=== PATIENT | female | born 1950 | race Hispanic/Latino ===

== ENCOUNTER → 2018-03-28 | Outpatient (CLI) | payer MEDICARE ==
[~2018-03-28] MED LIST: ALEN70TA2 PO; ASPI-555 PO; CALC667C10 PO; CETI10TA57 PO; CLOP75TA32 PO; DOCU100C33 PO; FERR325T22 PO; FLUT16H NASAL; HYDR-4068 PO; INSU100I3 SQ; INSU100V12 SQ; KRIL1CAP22 PO; LORA1TAB3 PO; MEDR10TA PO; METO-408 PO; METO25TA6 PO; METO5TAB2 PO; MUPI1OIN5 TP; ONDA4TAB7 PO; POLY30DR OU; PRAV10TA39 PO; PREM625 PO; ROPI1TAB11 PO; SUCR1TAB2 PO; TEMA15CA PO
== END | disposition home or self-care (01) ==
LOC: RAH 07:34
PROVIDERS: ATTEND Family Medicine
DX: D69.6 Thrombocytopenia, unspecified (principal); Z90.49 Acquired absence of other specified parts of digestive tract
CPT/HCPCS: 76700

== ENCOUNTER → 2018-06-27 | Outpatient (CLI) | payer MEDICARE | END | disposition home or self-care (01) | LOC: RAH 12:26 | PROVIDERS: ATTEND Family Medicine | DX: M47.816 Spondylosis without myelopathy or radiculopathy, lumbar region (principal) | CPT/HCPCS: 72100 ==

== ENCOUNTER 2018-12-07 17:51 | Emergency (ER) | payer MEDICARE ==
[2018-12-07] MEDS ORDERED: ACETAMINOPHEN 325 MG TAB ONE (18:20)
[2018-12-07] MEDS ORDERED: HYDROCODONE/ACETAMINOPHEN 10/325 MG TAB ONE (18:21)
[2018-12-07 18:29] LABS: EOSINOPHILS % (AUTO) 0.5 % (0.0-8.0); HEMATOCRIT 35.3 % (36-48); LYMPHOCYTES % (AUTO) 8.6 % (21.0-51.0); MEAN CORPUSCULAR HEMOGLOBIN 28.7 pg (27.0-33.0); MEAN CORPUSCULAR HGB CONC 33.2 g/dL (32.0-36.0); MEAN CORPUSCULAR VOLUME 86.5 fL (79-99); MONOCYTES % (AUTO) 10.8 % (3.0-13.0); NEUTROPHILS % (AUTO) 79.1 % (40.0-77.0); PLATELET COUNT (AUTO) 64 K/uL (130-400); RED BLOOD CELL COUNT(AUTO) 4.08 MIL/uL (4.00-5.50)
[2018-12-07 18:51] LABS: CREATININE 7.6 mg/dL (0.5-1.5); POTASSIUM 4.5 mmol/L (3.5-5.1)
[2018-12-07 18:56] LABS: ALBUMIN 3.6 g/dL (3.5-5.0); BILIRUBIN,TOTAL 0.6 mg/dL (0.2-1.0); TOTAL PROTEIN, SERUM 7.2 g/dL (6.0-8.3)
[2018-12-07] MEDS ORDERED: SODIUM CHLORIDE 0.9% 500ML 500 ML IV ONE (19:28)
[2018-12-07] MEDS ORDERED: OSELTAMIVIR PHOSPHATE 75 MG CAP ONE (20:12)
== END 2018-12-07 20:47 | disposition home or self-care (01) ==
LOC: EDH 17:51
DX: J10.1 Influenza due to other identified influenza virus with other respiratory manifestations (principal); I12.0 Hypertensive chronic kidney disease with stage 5 chronic kidney disease or end stage renal disease; E11.22 Type 2 diabetes mellitus with diabetic chronic kidney disease; N18.6 End stage renal disease; Z99.2 Dependence on renal dialysis; I25.9 Chronic ischemic heart disease, unspecified
CPT/HCPCS: 36415; 71045; 80053; 82948; 83605; 84484; 85025; 87040 ×2; 87804 ×2; 93005; 99285; J7040

== ENCOUNTER 2019-01-23 21:09 | Inpatient (IN) | payer MEDICARE ==
[~2019-01-23] VITALS: Ht 160 cm; Wt 93.9 kg
[2019-01-23 21:45] LABS: EOSINOPHILS % (AUTO) 1.2 % (0.0-8.0); HEMATOCRIT 38.5 % (36-48); LYMPHOCYTES % (AUTO) 20.4 % (21.0-51.0); MEAN CORPUSCULAR HEMOGLOBIN 28.5 pg (27.0-33.0); MEAN CORPUSCULAR HGB CONC 33.2 g/dL (32.0-36.0); MEAN CORPUSCULAR VOLUME 85.9 fL (79-99); MONOCYTES % (AUTO) 12.6 % (3.0-13.0); NEUTROPHILS % (AUTO) 64.8 % (40.0-77.0); NUCLEATED RED BLOOD CELLS 0.2 % (0.0-0.19); PLATELET COUNT (AUTO) 108 K/uL (130-400); RED BLOOD CELL COUNT(AUTO) 4.48 MIL/uL (4.00-5.50); RED CELL DISTRIBUTION WIDTH 18.4 % (11.0-15.5); WHITE BLOOD COUNT (AUTO) 4.7 K/uL (4.8-10.8)
[2019-01-23 22:07] LABS: POTASSIUM 3.9 mmol/L (3.5-5.1)
[2019-01-23] MEDS ORDERED: ONDANSETRON HCL 4 MG/2 ML VIAL ONE (22:08)
[2019-01-23] MEDS ORDERED: MORPHINE SULFATE 4 MG/1ML SYG ONE (22:08)
[2019-01-23 22:09] LABS: INR 1.08 (0.85-1.15); PARTIAL THROMBOPLASTIN TIME 25.1 SEC (26.3-35.5); PROTHROMBIN TIME 11.3 SEC (9.6-11.6)
[2019-01-23 22:10] LABS: PLATELET MORPHOLOGY COMMENT SLIGHTLY DECREASED
[2019-01-23 22:11] LABS: ALBUMIN 3.6 g/dL (3.5-5.0); BILIRUBIN,TOTAL 0.7 mg/dL (0.2-1.0); TOTAL PROTEIN, SERUM 7.1 g/dL (6.0-8.3)
[2019-01-23 22:12] LABS: B-TYPE NATRIURETIC PEPTIDE 694 pg/mL (0-100)
[2019-01-24] MEDS ORDERED: NITROGLYCERIN 1GM/1 INCH PACKET TD ONE (02:39)
[2019-01-24] MEDS ORDERED: MORPHINE SULFATE 4 MG/1ML SYG ONE (02:46)
[2019-01-24] MEDS: NITROGLYCERIN 1GM/1 INCH PACKET TD SCH ×4 (03:00→21:00)
[2019-01-24] MEDS ORDERED: DEXTROSE 50%-WATER 50 ML DISP.SYRIN IV PRN (03:30)
[2019-01-24] MEDS ORDERED: GLUCAGON 1MG KIT 1 MG ML IM PRN (03:30)
--- NOTE | 2019-01-24 03:30 | NUR ---
ADMISSION NOTE: Admitted to floor via stretcher from ER. AOX3. Fully awake and responsive. Attached to O2 at 1 lpm via NC with O2Sat at 98%. Denied chest discomfort at this time. Placed in bed according to pt comfort. VS checked and recorded. Assessment done. ( see CPOE flow chart for full assessment). Oriented to room and use of call light. Policies and procedures explained. Verbalized understanding. Hooked to TELE with SR result. Has IV site to LFA #22g , SL - patent and intact. Plan of care initiated. Home meds resumed as ordered. Watched out for any unusual changes in condition. Cared for and needs provided. No apparent distress noted.
[2019-01-24 03:35] VITALS: BP 149/81
[2019-01-24] MEDS ORDERED: CETIRIZINE HCL 5 MG TABLET PO PRN (04:30)
[2019-01-24] MEDS ORDERED: BENZONATATE 100 MG CAPSULE PO PRN (04:30)
[2019-01-24] MEDS ORDERED: ISOS30TA6 PO (04:48)
[2019-01-24] MEDS ORDERED: PIOG15TA66 PO (04:48)
[2019-01-24] MEDS ORDERED: LINA145C PO (04:48)
[2019-01-24] MEDS ORDERED: BENZ200C53 PO (04:48)
[2019-01-24] MEDS ORDERED: OMEP40CA13 PO (04:48)
[2019-01-24] MEDS ORDERED: CILO100T PO (04:48)
[2019-01-24] MEDS ORDERED: MELO-108 PO (04:48)
[2019-01-24] MEDS ORDERED: NITR0.4T50 SL (04:48)
[2019-01-24] MEDS ORDERED: FOLI1TAB85 PO (04:48)
[2019-01-24] MEDS ORDERED: ROSU10TA28 PO (04:48)
[2019-01-24] MEDS: INSULIN R PO SS1 SQ SCH ×4 (05:36→20:40)
[2019-01-24 08:00] VITALS: BP 143/65
[2019-01-24] MEDS: CILOSTAZOL 100 MG TAB PO SCH ×2 (08:11→21:17)
[2019-01-24] MEDS: CALCIUM ACETATE 667 MG CAPSULE PO SCH ×3 (08:11→18:41)
[2019-01-24] MEDS: ASPIRIN 325 MG TABLET PO SCH (08:11)
[2019-01-24] MEDS: FERROUS SULFATE 325 MG TABLET.DR PO SCH (08:11)
[2019-01-24] MEDS: MELOXICAM 7.5 MG TABLET PO SCH (08:12)
[2019-01-24] MEDS: CLOPIDOGREL BISULFATE 75 MG TAB PO SCH (08:12)
[2019-01-24] MEDS: DOCUSATE SODIUM 100 MG CAP PO SCH (08:12)
[2019-01-24] MEDS: FOLIC ACID/VITAMIN B COMP W-C 1 MG CAP/TAB PO SCH (08:12)
[2019-01-24] MEDS: LORAZEPAM 1 MG TABLET PO SCH ×2 (08:22→21:17)
[2019-01-24] MEDS ORDERED: FLUTICASONE PROPIONATE 50MCG/SPRAY 16 GM BOTTLE NS SCH (09:00)
[2019-01-24] MEDS ORDERED: ROSUVASTATIN CALCIUM 10 MG PO SCH (09:00)
[2019-01-24] MEDS ORDERED: ***HM***Metoprolol Succinate 25 MG PO SCH (09:00)
[2019-01-24] MEDS: PIOGLITAZONE HCL 15 MG TAB PO SCH (10:54)
[2019-01-24] MEDS: ***HM***Linaclotide (Linzess) 145 MCG PO SCH (11:30)
[2019-01-24] MEDS: METOPROLOL TARTRATE 25 MG TAB PO SCH ×2 (11:35→21:17)
[2019-01-24 11:43] VITALS: BP 110/59
[2019-01-24] MEDS: HYDROCODONE/ACETAMINOPHEN 10/325 MG TAB PO PRN ×2 (14:45→21:22)
--- NOTE | 2019-01-24 15:22 | NUR ---
DCP CM met with pt discussed dc plans. Pt is semi-independent prior to admission, lives with spouse. Pt has provider 35hrs/wk, shower chair, walker, wheelchair, cane, O2, goes to [facility], [facility]. Denies any other equipments/services. Feels safe to go back home, spouse able to assist with transportation and needs as necessary. DC plan to home once stable. CM to cont to follow up. Addendum: 01/24/19 at 1524 by SAMIR GODFREY LVN CM Amended: Links added.
[2019-01-24 15:55] VITALS: BP 115/60
--- NOTE | 2019-01-24 16:39 | NUR ---
Heart healthy diet education: Printed materials provided on Low cholesterol, low fat diet therapy. Pt encouraged to increase fiber intake through fruits and vegetables appropriate with renal diet. Pt encouraged to monitor fruit intake d/t DM dx. Addendum: 01/24/19 at [address] Amended: Links added.
--- NOTE | 2019-01-24 17:29 | NUR ---
Nutrition intervention Nutrition consult for diet education. pt admitted for chest pain r/o PA. Heart healthy Diet education provided. Pt requesting no red meats to her diet states she wants to reduce saturated fat intake and improve her diet therapy. Pt also reports decreased appetite due to constipation. Recommendation: Continue current diet therapy. No red meats as per pt's request. More vegetables. Stool softener to alleviate low GI distress. Addendum: 01/24/19 at [address] Amended: Links added.
[2019-01-24 20:00] VITALS: BP 122/58
[2019-01-24] MEDS: ATORVASTATIN CALCIUM 20 MG TABLET PO SCH (21:17)
--- NOTE | 2019-01-24 21:40 | NUR ---
MARSHAL SALAZAR ROUNDED: Seen and examined pt with an order to have another round of Dialysis carrie for 2 hrs , since she was not able to complete her Dialysis earlier due to cramping and pain as verbalized by pt.
[2019-01-25] VITALS: BP 124/70
[2019-01-25] MEDS: NITROGLYCERIN 1GM/1 INCH PACKET TD SCH ×4 (03:00→21:00)
[2019-01-25 04:00] VITALS: BP 133/65
[2019-01-25] MEDS: INSULIN R PO SS1 SQ SCH ×4 (06:42→21:00)
[2019-01-25] MEDS: CALCIUM ACETATE 667 MG CAPSULE PO SCH ×3 (08:00→17:00)
[2019-01-25 08:41] VITALS: BP 135/64
[2019-01-25] MEDS: LORAZEPAM 1 MG TABLET PO SCH ×2 (09:00→15:44)
[2019-01-25] MEDS: CILOSTAZOL 100 MG TAB PO SCH ×2 (09:00→21:26)
[2019-01-25] MEDS: MELOXICAM 7.5 MG TABLET PO SCH (09:00)
[2019-01-25] MEDS: FOLIC ACID/VITAMIN B COMP W-C 1 MG CAP/TAB PO SCH (09:00)
[2019-01-25] MEDS: ***HM***Linaclotide (Linzess) 145 MCG PO SCH (09:00)
[2019-01-25] MEDS: METOPROLOL TARTRATE 25 MG TAB PO SCH ×2 (09:00→21:26)
[2019-01-25] MEDS: DOCUSATE SODIUM 100 MG CAP PO SCH (09:00)
[2019-01-25] MEDS: FERROUS SULFATE 325 MG TABLET.DR PO SCH (09:00)
[2019-01-25] MEDS: PIOGLITAZONE HCL 15 MG TAB PO SCH (09:00)
[2019-01-25] MEDS: CLOPIDOGREL BISULFATE 75 MG TAB PO SCH ×2 (09:00→15:45)
[2019-01-25] MEDS ORDERED: LORAZEPAM 2 MG/ML 1 ML VIAL IVP SCH (09:15)
[2019-01-25] MEDS ORDERED: REGADENOSON 0.4 MG/5 ML PF SYG IVP SCH (09:45)
[2019-01-25] MEDS: FLUTICASONE PROPIONATE 50MCG/SPRAY 16 GM BOTTLE NS SCH (10:46)
[2019-01-25] MEDS: HYDROCODONE/ACETAMINOPHEN 10/325 MG TAB PO PRN ×2 (11:55→21:41)
[2019-01-25] MEDS: ASPIRIN 325 MG TABLET PO SCH ×2 (12:03→15:48)
[2019-01-25 12:05] VITALS: BP 161/79
[2019-01-25] MEDS ORDERED: ONDANSETRON HCL 4 MG/2 ML VIAL IVP SCH (12:15)
[2019-01-25 16:00] VITALS: BP 129/56
[2019-01-25 19:10] VITALS: BP 110/67
--- NOTE | 2019-01-25 19:50 | NUR ---
Activity: Patient sitting at bedside chair, denies pain with saline lock gauge on her left forearm patent. Plan of care discussed with patient and family, verbalizes understanding.
--- NOTE | 2019-01-25 20:29 | NUR ---
Pt pending the results of Lexiscan and 2D echo for d/c determination. MD pending to read result.
[2019-01-25] MEDS: ATORVASTATIN CALCIUM 20 MG TABLET PO SCH (21:26)
--- NOTE | 2019-01-25 21:35 | NUR ---
Patient: Patient refused to have Nitroglycerin Parch she claimed, " I felt dizzy, had a headache and my feet swell after I had the medication. I don't need it."
[2019-01-26] VITALS (7 sets, daily range): BP systolic 91–138; BP diastolic 45–66
[2019-01-26] MEDS: NITROGLYCERIN 1GM/1 INCH PACKET TD SCH ×4 (03:00→21:00)
[2019-01-26] MEDS: INSULIN R PO SS1 SQ SCH ×4 (07:30→21:00)
[2019-01-26] MEDS: CALCIUM ACETATE 667 MG CAPSULE PO SCH ×3 (08:00→17:00)
[2019-01-26 08:11] LABS: HEPATITIS A ANTIBODY IGM Negative (Negative); HEPATITIS B CORE IGM Negative (Negative); HEPATITIS Bs ANTIGEN SCREEN P Negative (Negative)
[2019-01-26] MEDS: LORAZEPAM 1 MG TABLET PO SCH ×2 (08:30→21:25)
[2019-01-26] MEDS: HYDROCODONE/ACETAMINOPHEN 10/325 MG TAB PO PRN ×3 (08:31→21:25)
[2019-01-26] MEDS: FERROUS SULFATE 325 MG TABLET.DR PO SCH (09:00)
[2019-01-26] MEDS: MELOXICAM 7.5 MG TABLET PO SCH (09:00)
[2019-01-26] MEDS: ***HM***Linaclotide (Linzess) 145 MCG PO SCH (09:00)
[2019-01-26] MEDS: ASPIRIN 325 MG TABLET PO SCH ×2 (09:00→21:24)
[2019-01-26] MEDS: METOPROLOL TARTRATE 25 MG TAB PO SCH ×2 (09:00→21:25)
[2019-01-26] MEDS: CILOSTAZOL 100 MG TAB PO SCH ×2 (09:00→21:25)
[2019-01-26] MEDS: FLUTICASONE PROPIONATE 50MCG/SPRAY 16 GM BOTTLE NS SCH (09:00)
[2019-01-26] MEDS: PIOGLITAZONE HCL 15 MG TAB PO SCH (09:00)
[2019-01-26] MEDS: DOCUSATE SODIUM 100 MG CAP PO SCH (09:00)
[2019-01-26] MEDS: FOLIC ACID/VITAMIN B COMP W-C 1 MG CAP/TAB PO SCH (09:00)
--- NOTE | 2019-01-26 11:07 | NUR ---
HEMODIALYSIS Patient will have hemodialysis today. CARLOS Obregon was noitified.
--- NOTE | 2019-01-26 17:30 | NUR ---
MORNING MEDICATIONS Patient to have her medications after hemodialysis. The phoslo was refused. Stated her appetite is not very good and not eating much. At this time reports nausea. Will medicate as ordered.
--- NOTE | 2019-01-26 17:35 | NUR ---
HEMODIALYSIS Starting at this time. Echo has been read. Pending lexiscan to be read; Tae aware.
--- NOTE | 2019-01-26 20:10 | NUR ---
NAUSEA MEDICATION No call back from MD. Patient did not have any emesis. Nausea subsided on its own.
[2019-01-26] MEDS: CLOPIDOGREL BISULFATE 75 MG TAB PO SCH (21:25)
[2019-01-26] MEDS: ATORVASTATIN CALCIUM 20 MG TABLET PO SCH (21:25)
[2019-01-27] MEDS: NITROGLYCERIN 1GM/1 INCH PACKET TD SCH ×4 (03:00→20:49)
[2019-01-27 03:46] VITALS: BP 119/50
[2019-01-27 06:22] LABS: MEAN CORPUSCULAR HEMOGLOBIN 28.1 pg (27.0-33.0); MEAN CORPUSCULAR HGB CONC 32.4 g/dL (32.0-36.0); MEAN CORPUSCULAR VOLUME 86.9 fL (79-99); PLATELET COUNT (AUTO) 99 K/uL (130-400); RED BLOOD CELL COUNT(AUTO) 4.37 MIL/uL (4.00-5.50); RED CELL DISTRIBUTION WIDTH 18.5 % (11.0-15.5); WHITE BLOOD COUNT (AUTO) 4.2 K/uL (4.8-10.8)
[2019-01-27] MEDS: HYDROCODONE/ACETAMINOPHEN 10/325 MG TAB PO PRN ×4 (06:24→20:16)
[2019-01-27 06:30] LABS: CREATININE 5.4 mg/dL (0.5-1.5); POTASSIUM 3.6 mmol/L (3.5-5.1)
[2019-01-27] MEDS: INSULIN R PO SS1 SQ SCH ×4 (07:09→20:49)
[2019-01-27 08:00] VITALS: BP 120/60
[2019-01-27] MEDS: CALCIUM ACETATE 667 MG CAPSULE PO SCH ×3 (08:00→17:00)
[2019-01-27] MEDS: PIOGLITAZONE HCL 15 MG TAB PO SCH (08:43)
[2019-01-27] MEDS: CILOSTAZOL 100 MG TAB PO SCH ×2 (08:44→20:15)
[2019-01-27] MEDS: FOLIC ACID/VITAMIN B COMP W-C 1 MG CAP/TAB PO SCH (08:44)
[2019-01-27] MEDS: LORAZEPAM 1 MG TABLET PO SCH ×2 (08:44→21:43)
[2019-01-27] MEDS: MELOXICAM 7.5 MG TABLET PO SCH (08:45)
[2019-01-27] MEDS: DOCUSATE SODIUM 100 MG CAP PO SCH (08:45)
[2019-01-27] MEDS: FERROUS SULFATE 325 MG TABLET.DR PO SCH (08:45)
[2019-01-27] MEDS: METOPROLOL TARTRATE 25 MG TAB PO SCH ×2 (08:45→20:15)
[2019-01-27] MEDS: FLUTICASONE PROPIONATE 50MCG/SPRAY 16 GM BOTTLE NS SCH (08:46)
[2019-01-27] MEDS: ***HM***Linaclotide (Linzess) 145 MCG PO SCH (08:47)
[2019-01-27 12:00] VITALS: BP 125/62
--- NOTE | 2019-01-27 15:15 | NUR ---
DR. JAKE JOSEPH MAKING ROUNDS FOR BENCHMARK. ADVISED HIM OF PRELIMINARY LEXISCAN RESULTS OF POSITIVE WITH AN EF OF 27%. DR. JOSEPH ADVISED TO NOTIFY CARDIOLOGY OF LEXISCAN RESULTS.
--- NOTE | 2019-01-27 15:22 | NUR ---
PAGED DR. KAY JOSEPH REQUEST CHILD WATCH ATTENDANT BE GIVEN PRELIMINARY RESULTS OF LEXISCAN. PAGED AT [phone] HOURS WITH CALL BACK TO [phone]. Addendum: 01/27/19 at 1927 by CONNOR WAGONER RN RN MADE SECOND PAGE AT 1654 HOURS. NO RESPONSE AT THIS TIME. WILL PASS INFORMATION TO FIRE HOSE CURER NURSE IN REPORT.
[2019-01-27 16:00] VITALS: BP 121/57
[2019-01-27 19:56] VITALS: BP 135/66
--- NOTE | 2019-01-27 20:00 | NUR ---
PAGED DR CHRISTIANSON Paged Dr Christianson thru answering service.
--- NOTE | 2019-01-27 20:13 | NUR ---
ANSWERING SERVICE Answering service called back,will paged Dr Christianson again.
[2019-01-27] MEDS: ATORVASTATIN CALCIUM 20 MG TABLET PO SCH (20:15)
[2019-01-27] MEDS: CLOPIDOGREL BISULFATE 75 MG TAB PO SCH (20:21)
[2019-01-27] MEDS: ASPIRIN 325 MG TABLET PO SCH ×2 (20:22→20:44)
--- NOTE | 2019-01-27 20:59 | NUR ---
PAGED PAGEGarfield VILLANUEVA AGAIN THRU ANSWERING SERVICE.NURSE SITTER SANGEETA HART AWARE.
--- NOTE | 2019-01-27 21:02 | NUR ---
DR KAY Christianson called back,no new order.States to call Dr Donnelly re Gabriela report in am.
[2019-01-27 23:36] VITALS: BP 118/62
[2019-01-28] VITALS (11 sets, daily range): BP systolic 115–146; BP diastolic 57–79
[2019-01-28] MEDS: NITROGLYCERIN 1GM/1 INCH PACKET TD SCH ×5 (03:00→21:02)
[2019-01-28] MEDS: HYDROCODONE/ACETAMINOPHEN 10/325 MG TAB PO PRN ×4 (05:10→23:39)
[2019-01-28 05:18] LABS: HEMATOCRIT 38.8 % (36-48); MEAN CORPUSCULAR HGB CONC 32.7 g/dL (32.0-36.0); MEAN CORPUSCULAR VOLUME 88.6 fL (79-99); NUCLEATED RED BLOOD CELLS 0.1 % (0.0-0.19); PLATELET COUNT (AUTO) 85 K/uL (130-400); RED BLOOD CELL COUNT(AUTO) 4.38 MIL/uL (4.00-5.50); RED CELL DISTRIBUTION WIDTH 18.5 % (11.0-15.5); WHITE BLOOD COUNT (AUTO) 4.1 K/uL (4.8-10.8)
[2019-01-28 05:41] LABS: CREATININE 7.2 mg/dL (0.5-1.5); POTASSIUM 3.6 mmol/L (3.5-5.1)
[2019-01-28] MEDS: INSULIN R PO SS1 SQ SCH ×4 (06:27→21:00)
[2019-01-28] MEDS: LORAZEPAM 1 MG TABLET PO SCH ×2 (07:46→21:00)
[2019-01-28] MEDS: CALCIUM ACETATE 667 MG CAPSULE PO SCH ×3 (07:47→17:00)
--- NOTE | 2019-01-28 07:47 | NUR ---
CALCIUM ACETATE Refused. Stated she only takes it when she eats a large meal.
[2019-01-28] MEDS: FLUTICASONE PROPIONATE 50MCG/SPRAY 16 GM BOTTLE NS SCH (09:00)
[2019-01-28] MEDS: ***HM***Linaclotide (Linzess) 145 MCG PO SCH (09:00)
[2019-01-28] MEDS: DOCUSATE SODIUM 100 MG CAP PO SCH (09:00)
--- NOTE | 2019-01-28 09:45 | NUR ---
DR. DONNELLY Spoke to Mallory at Dr. Donnelly's office. Stated she will notify Dr. Donnelly of the positive stress test. Pending for Dr. Donnelly to call back.
--- NOTE | 2019-01-28 10:53 | NUR ---
ELLIE Refused. Stated she already had it for this morning.
[2019-01-28] MEDS ORDERED: ONDANSETRON HCL 4 MG/2 ML VIAL ONE (11:22)
[2019-01-28] MEDS: MELOXICAM 7.5 MG TABLET PO SCH (11:31)
[2019-01-28] MEDS: METOPROLOL TARTRATE 25 MG TAB PO SCH (11:31)
[2019-01-28] MEDS: FERROUS SULFATE 325 MG TABLET.DR PO SCH (11:32)
[2019-01-28] MEDS: FOLIC ACID/VITAMIN B COMP W-C 1 MG CAP/TAB PO SCH (11:32)
[2019-01-28] MEDS: PIOGLITAZONE HCL 15 MG TAB PO SCH (11:32)
[2019-01-28] MEDS: CILOSTAZOL 100 MG TAB PO SCH ×2 (11:32→21:00)
[2019-01-28] MEDS ORDERED: DiphenhydrAMINE HCL 50 MG/ML VIAL IVP PRN (14:30)
[2019-01-28] MEDS ORDERED: HEPARIN SODIUM 1000UNIT/ML 10ML VIAL ONE (14:33)
[2019-01-28] MEDS ORDERED: FENTANYL CITRATE PF 50 MCG/1 ML 2ML VIAL ONE (14:33)
[2019-01-28] MEDS ORDERED: MIDAZOLAM HCL 1 MG/ML 2ML VIAL ONE (14:33)
[2019-01-28] MEDS ORDERED: NITROGLYCERIN 5 MG/ML 10 ML VIAL IV ONE (14:33)
[2019-01-28] MEDS ORDERED: IODIXANOL 320 MG/ML 100 ML VIAL ONE (14:33)
[2019-01-28] MEDS ORDERED: LIDOCAINE HCL 2% 20ML ONE (14:34)
[2019-01-28 14:48] LABS: HEMATOCRIT 42.6 % (36-48); MEAN CORPUSCULAR HEMOGLOBIN 28.5 pg (27.0-33.0); MEAN CORPUSCULAR HGB CONC 32.5 g/dL (32.0-36.0); MEAN CORPUSCULAR VOLUME 87.8 fL (79-99); NUCLEATED RED BLOOD CELLS 0.1 % (0.0-0.19); PLATELET COUNT (AUTO) 92 K/uL (130-400); RED BLOOD CELL COUNT(AUTO) 4.85 MIL/uL (4.00-5.50); RED CELL DISTRIBUTION WIDTH 19.2 % (11.0-15.5); WHITE BLOOD COUNT (AUTO) 5.1 K/uL (4.8-10.8)
[2019-01-28 14:57] LABS: CREATININE 7.8 mg/dL (0.5-1.5); POTASSIUM 4.1 mmol/L (3.5-5.1)
--- NOTE | 2019-01-28 15:00 | NUR ---
NURSING NOTE Patient went to have left heart catheterization by Dr. Donnelly. Consent obtained.
[2019-01-28 15:03] LABS: INR 1.07 (0.85-1.15); PARTIAL THROMBOPLASTIN TIME 28.3 SEC (26.3-35.5); PROTHROMBIN TIME 11.2 SEC (9.6-11.6)
[2019-01-28] MEDS ORDERED: IOHEXOL 350 MG/ML 100ML INFUS..BTL IV ONE ×2 (15:05→15:53)
[2019-01-28] MEDS ORDERED: DiphenhydrAMINE HCL 50 MG/ML VIAL ONE (15:06)
[2019-01-28] MEDS ORDERED: BIVALIRUDIN 250 MG/VIAL IV ONE (15:24)
[2019-01-28] MEDS ORDERED: TICAGRELOR 90 MG TABLET ONE (16:46)
[2019-01-28] MEDS ORDERED: ASPIRIN 325MG EC TAB 325 MG TABLET.DR PO ONE (16:46)
--- NOTE | 2019-01-28 17:50 | NUR ---
PT WAS ADMITTED TO ROOM 219 AFTER CATH PROCEDURE AND LASER ENGINEER STAFF WAS ADVISED OF RIGHT GROIN OOZING SOME BLOOD AND ARE HOLDING PRESSURE AND THERE IS NO HEMATOMA OR ECCHYMOSIS NOTED.
--- NOTE | 2019-01-28 18:10 | NUR ---
PRESSURE WAS HELD FOR 20 MINUTES AND A D STAT WAS APPLIED AND PRESSURE DRESSING APPLIED BY STEFANO JENNINGS RN FROM [facility]. WILL CONTINUE TO MONITOR SITE.
--- NOTE | 2019-01-28 18:20 | NUR ---
PT HAD REQUESTED SOMETHING FOR PAIN AND WAS MEDICATED. PT'S FAMILY IN TO VISIT AFTER CATH PROCEDURE.
--- NOTE | 2019-01-28 18:45 | NUR ---
PT IS TO REMAIN BEDREST FOR 4 HOURS OR NEEDED.
[2019-01-28] MEDS ORDERED: CLOPIDOGREL BISULFATE 75 MG TAB PO SCH (21:00)
[2019-01-28] MEDS: CARVEDILOL 25 MG TABLET PO SCH (21:00)
[2019-01-28] MEDS: ATORVASTATIN CALCIUM 40 MG TABLET PO SCH (21:00)
[2019-01-28] MEDS: ASPIRIN 325 MG TABLET PO SCH (21:01)
[2019-01-29] VITALS (11 sets, daily range): BP systolic 101–137; BP diastolic 49–66
[2019-01-29] MEDS: ONDANSETRON HCL 4 MG/2 ML VIAL IVP PRN ×3 (00:26→21:55)
[2019-01-29] MEDS: NITROGLYCERIN 1GM/1 INCH PACKET TD SCH ×2 (04:12→08:20)
[2019-01-29 04:32] LABS: EOSINOPHILS % (AUTO) 1.7 % (0.0-8.0); HEMATOCRIT 37.7 % (36-48); LYMPHOCYTES % (AUTO) 18.5 % (21.0-51.0); MEAN CORPUSCULAR HEMOGLOBIN 28.7 pg (27.0-33.0); MONOCYTES % (AUTO) 16.2 % (3.0-13.0); NEUTROPHILS % (AUTO) 62.6 % (40.0-77.0); NUCLEATED RED BLOOD CELLS 0.1 % (0.0-0.19); PLATELET COUNT (AUTO) 105 K/uL (130-400); RED BLOOD CELL COUNT(AUTO) 4.33 MIL/uL (4.00-5.50); RED CELL DISTRIBUTION WIDTH 18.5 % (11.0-15.5); WHITE BLOOD COUNT (AUTO) 4.5 K/uL (4.8-10.8)
[2019-01-29 04:38] LABS: POTASSIUM 4.3 mmol/L (3.5-5.1)
[2019-01-29 04:48] LABS: CREATININE 8.5 mg/dL (0.5-1.5)
[2019-01-29] MEDS: INSULIN R PO SS1 SQ SCH ×4 (07:12→21:00)
[2019-01-29] MEDS: HYDROCODONE/ACETAMINOPHEN 10/325 MG TAB PO PRN ×3 (07:24→21:51)
[2019-01-29] MEDS: LORAZEPAM 1 MG TABLET PO SCH ×2 (08:15→21:51)
[2019-01-29] MEDS: FERROUS SULFATE 325 MG TABLET.DR PO SCH (08:15)
[2019-01-29] MEDS: CALCIUM ACETATE 667 MG CAPSULE PO SCH ×3 (08:15→17:00)
[2019-01-29] MEDS: CILOSTAZOL 100 MG TAB PO SCH ×2 (08:16→21:51)
[2019-01-29] MEDS: FOLIC ACID/VITAMIN B COMP W-C 1 MG CAP/TAB PO SCH (08:16)
[2019-01-29] MEDS: DOCUSATE SODIUM 100 MG CAP PO SCH (08:16)
[2019-01-29] MEDS: MELOXICAM 7.5 MG TABLET PO SCH (08:16)
[2019-01-29] MEDS: ***HM***Linaclotide (Linzess) 145 MCG PO SCH (08:17)
[2019-01-29] MEDS: CARVEDILOL 25 MG TABLET PO SCH ×2 (08:17→21:55)
[2019-01-29] MEDS: LISINOPRIL 10 MG TABLET PO SCH (08:18)
[2019-01-29] MEDS: FLUTICASONE PROPIONATE 50MCG/SPRAY 16 GM BOTTLE NS SCH (09:00)
[2019-01-29] MEDS: PIOGLITAZONE HCL 15 MG TAB PO SCH (09:00)
--- NOTE | 2019-01-29 14:42 | NUR ---
RD Follow Up Note Pt s/p Dialysis X3. Pt tolerating 75gm CCD diet order with no report of GI distress and Good PO intake(100%). RD to add Renal Dialysis Diet modifier. Pt LBM 01/27/19. Pt monitored labs: Cl 96, BUN 24, Cr 8.5, GFR 5, Glu 120. Pending Cath placement at time of screen, as per EMR. RD to continue to monitor. Please notify RD as additional nutrition concerns arise. Thank you. Addendum: 01/29/19 at [address] RD Amended: Links added.
[2019-01-29] MEDS: METOCLOPRAMIDE 5 MG TABLET PO SCH ×2 (16:45→21:51)
[2019-01-29] MEDS: PANTOPRAZOLE SODIUM 40 MG TABLET.DR PO SCH (16:45)
--- NOTE | 2019-01-29 19:00 | NUR ---
Assumed care at 1900. Patient currently being dialyzed. Patient in stable condition. Patient in no apparent distress. Please see physical assessment for further detail. Will continue to monitor.
[2019-01-29] MEDS ORDERED: LIDOCAINE HCL 2% VISCOUS 60 ML, MAG HYDROX/AL HYDROX/SIMETH 60 ML, DICYCLOMINE HCL 40 MG PO PRN ×3 (19:15)
[2019-01-29] MEDS ORDERED: COMPOUND PO MISCELLANEOUS 1 EACH MISC MISC PRN (19:15)
[2019-01-29] MEDS ORDERED: PHARMACY COMMUNICATION MISC SCH (19:15)
[2019-01-29] MEDS ORDERED: LACTULOSE 20 GM/30 ML UDCUP PO PRN (19:30)
[2019-01-29] MEDS: ASPIRIN 325 MG TABLET PO SCH (21:50)
[2019-01-29] MEDS: TICAGRELOR 90 MG TABLET PO SCH (21:51)
[2019-01-29] MEDS: ATORVASTATIN CALCIUM 40 MG TABLET PO SCH (21:55)
[2019-01-30 04:00] VITALS: BP 111/53
[2019-01-30 04:28] VITALS: BP 111/53
[2019-01-30] MEDS: ONDANSETRON HCL 4 MG/2 ML VIAL IVP PRN (05:20)
[2019-01-30] MEDS: HYDROCODONE/ACETAMINOPHEN 10/325 MG TAB PO PRN ×2 (05:20→11:37)
[2019-01-30] MEDS: INSULIN R PO SS1 SQ SCH ×2 (07:15→11:30)
[2019-01-30] MEDS: CALCIUM ACETATE 667 MG CAPSULE PO SCH ×2 (07:22→11:37)
[2019-01-30] MEDS: PANTOPRAZOLE SODIUM 40 MG TABLET.DR PO SCH (07:22)
[2019-01-30] MEDS: METOCLOPRAMIDE 5 MG TABLET PO SCH ×2 (07:22→11:37)
[2019-01-30 07:48] VITALS: BP 118/50
[2019-01-30] MEDS: ***HM***Linaclotide (Linzess) 145 MCG PO SCH (09:00)
[2019-01-30] MEDS ORDERED: POLYETHYLENE GLYCOL 3350 17 GM POWD.PACK PO SCH (09:00)
[2019-01-30] MEDS: FLUTICASONE PROPIONATE 50MCG/SPRAY 16 GM BOTTLE NS SCH (09:00)
[2019-01-30] MEDS: FOLIC ACID/VITAMIN B COMP W-C 1 MG CAP/TAB PO SCH (09:15)
[2019-01-30] MEDS: PIOGLITAZONE HCL 15 MG TAB PO SCH (09:15)
[2019-01-30] MEDS: FERROUS SULFATE 325 MG TABLET.DR PO SCH (09:15)
[2019-01-30] MEDS: LORAZEPAM 1 MG TABLET PO SCH (09:16)
[2019-01-30] MEDS: MELOXICAM 7.5 MG TABLET PO SCH (09:16)
[2019-01-30] MEDS: CILOSTAZOL 100 MG TAB PO SCH (09:16)
[2019-01-30] MEDS: LISINOPRIL 10 MG TABLET PO SCH (09:16)
[2019-01-30] MEDS: TICAGRELOR 90 MG TABLET PO SCH (09:16)
[2019-01-30] MEDS: DOCUSATE SODIUM 100 MG CAP PO SCH (09:16)
[2019-01-30] MEDS: CARVEDILOL 25 MG TABLET PO SCH (09:17)
[2019-01-30 11:36] VITALS: BP 114/53
== END 2019-01-30 13:35 | disposition home or self-care (01) | DRG 246 ==
LOC: EDH 21:09 → OBSVTOIN 01-24 02:22 → EDHIP 01-24 02:22 → 3DH 01-24 02:56 → 2CH 01-28 17:39
PROVIDERS: ADMIT Internal Medicine Critical Care Medicine; ATTEND Internal Medicine Critical Care Medicine
PROC: 5A1D70Z Performance of Urinary Filtration, Intermittent, Less than 6 Hours Per Day (ICD-10-PCS; 2019-01-24)
PROC: 5A1D70Z Performance of Urinary Filtration, Intermittent, Less than 6 Hours Per Day (ICD-10-PCS; 2019-01-25)
PROC: 5A1D70Z Performance of Urinary Filtration, Intermittent, Less than 6 Hours Per Day (ICD-10-PCS; 2019-01-26)
PROC: 027034Z Dilation of Coronary Artery, One Artery with Drug-eluting Intraluminal Device, Percutaneous Approach (ICD-10-PCS; principal; 2019-01-28)
PROC: 4A023N7 Measurement of Cardiac Sampling and Pressure, Left Heart, Percutaneous Approach (ICD-10-PCS; 2019-01-28)
PROC: B2111ZZ Fluoroscopy of Multiple Coronary Arteries using Low Osmolar Contrast (ICD-10-PCS; 2019-01-28)
PROC: B2181ZZ Fluoroscopy of Left Internal Mammary Bypass Graft using Low Osmolar Contrast (ICD-10-PCS; 2019-01-28)
PROC: B2151ZZ Fluoroscopy of Left Heart using Low Osmolar Contrast (ICD-10-PCS; 2019-01-28)
PROC: B2131ZZ Fluoroscopy of Multiple Coronary Artery Bypass Grafts using Low Osmolar Contrast (ICD-10-PCS; 2019-01-28)
PROC: 5A1D70Z Performance of Urinary Filtration, Intermittent, Less than 6 Hours Per Day (ICD-10-PCS; 2019-01-29)
DX: T82.857A Stenosis of other cardiac prosthetic devices, implants and grafts, initial encounter (principal); N18.6 End stage renal disease; I12.0 Hypertensive chronic kidney disease with stage 5 chronic kidney disease or end stage renal disease; I13.2 Hypertensive heart and chronic kidney disease with heart failure and with stage 5 chronic kidney disease, or end stage renal disease; I50.20 Unspecified systolic (congestive) heart failure; I25.119 Atherosclerotic heart disease of native coronary artery with unspecified angina pectoris; Z99.2 Dependence on renal dialysis; E11.22 Type 2 diabetes mellitus with diabetic chronic kidney disease; D64.9 Anemia, unspecified; K30 Functional dyspepsia; E11.21 Type 2 diabetes mellitus with diabetic nephropathy; R94.39 Abnormal result of other cardiovascular function study; J00 Acute nasopharyngitis [common cold]; I08.1 Rheumatic disorders of both mitral and tricuspid valves; G47.33 Obstructive sleep apnea (adult) (pediatric); I25.82 Chronic total occlusion of coronary artery; I45.10 Unspecified right bundle-branch block; K59.00 Constipation, unspecified; E66.01 Morbid (severe) obesity due to excess calories; Y83.2 Surgical operation with anastomosis, bypass or graft as the cause of abnormal reaction of the patient, or of later complication, without mention of misadventure at the time of the procedure; K31.84 Gastroparesis; E11.43 Type 2 diabetes mellitus with diabetic autonomic (poly)neuropathy; I25.2 Old myocardial infarction; Z90.710 Acquired absence of both cervix and uterus; Z90.49 Acquired absence of other specified parts of digestive tract; Z82.49 Family history of ischemic heart disease and other diseases of the circulatory system; Z79.899 Other long term (current) drug therapy; Z68.36 Body mass index [BMI] 36.0-36.9, adult; Z79.83 Long term (current) use of bisphosphonates; Z79.4 Long term (current) use of insulin; Z79.82 Long term (current) use of aspirin; Z79.02 Long term (current) use of antithrombotics/antiplatelets; Y92.89 Other specified places as the place of occurrence of the external cause; Z88.8 Allergy status to other drugs, medicaments and biological substances; Z95.1 Presence of aortocoronary bypass graft
CPT/HCPCS: 36415; 71045; 78452; 80048; 80053; 80061; 80074; 82550; 82948; 83880; 84484; 85025; 85027; 85610; 85730; 90935; 93005; 93017; 93306; 93459; 96374; 99156; 99157; 99291; A9500; C1760; C1769; C1884; C1887; C1894; C9604; G0378; J0583; J1200; J1644; J1815; J2060; J2250; J2270; J2405; J2785; J3010; J3490; Q9967

== ENCOUNTER 2019-03-20 21:15 | Emergency (ER) | payer MEDICARE ==
[~2019-03-20 21:15] MED LIST changes: +CILO100T PO; -CLOP75TA32 PO; +FOLI1TAB85 PO; +ISOS30TA6 PO; -KRIL1CAP22 PO; +LINA145C PO; -MEDR10TA PO; +MELO-108 PO; -METO25TA6 PO; -METO5TAB2 PO; -MUPI1OIN5 TP; +NITR0.4T50 SL; +OMEP40CA13 PO; +PIOG15TA66 PO; -PRAV10TA39 PO; -PREM625 PO; -ROPI1TAB11 PO; -SUCR1TAB2 PO; -TEMA15CA PO
[2019-03-20] MEDS ORDERED: ONDANSETRON HCL 4 MG/2 ML VIAL ONE (21:45)
[2019-03-20] MEDS ORDERED: MORPHINE SULFATE 4 MG/1ML SYG ONE ×2 (21:46→23:50)
[2019-03-20 22:17] LABS: BASOPHILS % (AUTO) 0.3 % (0.0-5.0); EOSINOPHILS % (AUTO) 0.9 % (0.0-8.0); HEMATOCRIT 38.9 % (36-48); LYMPHOCYTES % (AUTO) 9.4 % (21.0-51.0); MEAN CORPUSCULAR HEMOGLOBIN 27.4 pg (27.0-33.0); MEAN CORPUSCULAR HGB CONC 31.6 g/dL (32.0-36.0); MEAN CORPUSCULAR VOLUME 86.6 fL (79-99); MONOCYTES % (AUTO) 8.9 % (3.0-13.0); NEUTROPHILS % (AUTO) 80.1 % (40.0-77.0); PLATELET COUNT (AUTO) 148 K/uL (130-400); RED BLOOD CELL COUNT(AUTO) 4.49 MIL/uL (4.00-5.50); RED CELL DISTRIBUTION WIDTH 17.3 % (11.0-15.5); WHITE BLOOD COUNT (AUTO) 7.9 K/uL (4.8-10.8)
[2019-03-20 22:30] LABS: INR 1.08 (0.85-1.15); PARTIAL THROMBOPLASTIN TIME 31.7 SEC (26.3-35.5); PROTHROMBIN TIME 11.3 SEC (9.6-11.6)
[2019-03-20 23:02] LABS: ALBUMIN 3.5 g/dL (3.5-5.0); BILIRUBIN,TOTAL 0.7 mg/dL (0.2-1.0); CREATININE 6.4 mg/dL (0.5-1.5); POTASSIUM 4.6 mmol/L (3.5-5.1); TOTAL PROTEIN, SERUM 7.6 g/dL (6.0-8.3)
== END 2019-03-20 23:59 | disposition home or self-care (01) ==
LOC: EDH 21:15
DX: K91.840 Postprocedural hemorrhage of a digestive system organ or structure following a digestive system procedure (principal); E11.22 Type 2 diabetes mellitus with diabetic chronic kidney disease; I12.0 Hypertensive chronic kidney disease with stage 5 chronic kidney disease or end stage renal disease; N18.6 End stage renal disease; K08.89 Other specified disorders of teeth and supporting structures; E78.00 Pure hypercholesterolemia, unspecified; I25.2 Old myocardial infarction; Y82.8 Other medical devices associated with adverse incidents; Y83.8 Other surgical procedures as the cause of abnormal reaction of the patient, or of later complication, without mention of misadventure at the time of the procedure; Y92.89 Other specified places as the place of occurrence of the external cause; Z88.1 Allergy status to other antibiotic agents
CPT/HCPCS: 36415; 80053; 85025; 85610; 85730; 86850; 86900; 86901; 93005; 96374; 96375; 96376; 99285; J2270 ×2; J2405

== ENCOUNTER 2019-09-16 22:47 | Emergency (ER) | payer MEDICARE ==
[~2019-09-16 22:47] MED LIST changes: -ASPI-555 PO; +ASPI-556 PO
[2019-09-16] MEDS ORDERED: MORPHINE SULFATE 2 MG/ML 1ML SYG ONE (23:34)
[2019-09-17 00:07] LABS: BASOPHILS % (AUTO) 0.2 % (0.0-5.0); EOSINOPHILS % (AUTO) 4.3 % (0.0-8.0); HEMATOCRIT 34.8 % (36-48); LYMPHOCYTES % (AUTO) 7.7 % (21.0-51.0); MEAN CORPUSCULAR HEMOGLOBIN 27.2 pg (27.0-33.0); MEAN CORPUSCULAR HGB CONC 30.7 g/dL (32.0-36.0); MEAN CORPUSCULAR VOLUME 88.5 fL (79-99); MONOCYTES % (AUTO) 9.9 % (3.0-13.0); NEUTROPHILS % (AUTO) 77.4 % (40.0-77.0); PLATELET COUNT (AUTO) 111 K/uL (130-400); RED BLOOD CELL COUNT(AUTO) 3.93 MIL/uL (4.00-5.50); RED CELL DISTRIBUTION WIDTH 17.4 % (11.0-15.5); WHITE BLOOD COUNT (AUTO) 8.8 K/uL (4.8-10.8)
[2019-09-17 00:22] LABS: CREATININE 6.4 mg/dL (0.5-1.5); POTASSIUM 4.9 mmol/L (3.5-5.1)
[2019-09-17 00:25] LABS: INR 1.12 (0.85-1.15); PARTIAL THROMBOPLASTIN TIME 32.4 SEC (26.3-35.5)
[2019-09-17 00:27] LABS: ALBUMIN 3.1 g/dL (3.5-5.0); BILIRUBIN,TOTAL 0.6 mg/dL (0.2-1.0); TOTAL PROTEIN, SERUM 6.7 g/dL (6.0-8.3)
[2019-09-17] MEDS ORDERED: MORPHINE SULFATE 2 MG/ML 1ML SYG ONE (02:03)
[2019-09-19] MEDS ORDERED: LOSA50TA64 PO (18:22)
[2019-09-19] MEDS ORDERED: ISOS60TA4 PO (18:22)
[2019-09-19] MEDS ORDERED: LORA-192 PO (18:22)
[2019-09-19] MEDS ORDERED: INSU100I21 SQ ×2 (18:22)
[2019-09-19] MEDS ORDERED: ICOS1CAP PO (18:22)
[2019-09-19] MEDS ORDERED: CLOP75TA32 PO (18:22)
[2019-09-19] MEDS ORDERED: ATOR40TA69 PO (18:22)
[2019-09-19] MEDS ORDERED: ONDA4TAB10 PO (18:22)
[2019-09-19] MEDS ORDERED: OMEP20CA12 PO (18:24)
[2019-09-19] MEDS ORDERED: PIOG15TA66 PO (18:27)
== END 2019-09-17 02:35 | disposition home or self-care (01) ==
LOC: EDH 22:47
DX: S52.202A Unspecified fracture of shaft of left ulna, initial encounter for closed fracture (principal); S52.92XA Unspecified fracture of left forearm, initial encounter for closed fracture; S80.02XA Contusion of left knee, initial encounter; S00.83XA Contusion of other part of head, initial encounter; S09.90XA Unspecified injury of head, initial encounter; E11.9 Type 2 diabetes mellitus without complications; I10 Essential (primary) hypertension; E78.00 Pure hypercholesterolemia, unspecified; I25.2 Old myocardial infarction; Z88.6 Allergy status to analgesic agent; W18.39XA Other fall on same level, initial encounter; Y93.01 Activity, walking, marching and hiking; Y92.89 Other specified places as the place of occurrence of the external cause; Y99.8 Other external cause status
CPT/HCPCS: 29125; 36415; 70450; 70486; 72125; 73090; 73100; 73562; 80053; 82550; 83690; 84484; 85025; 85610; 85730; 93005; 96372

== ENCOUNTER 2019-09-20 05:38 | Day surgery (SDC) | payer MEDICARE ==
[2019-09-17 11:37] VITALS: BP 137/71
[2019-09-17 16:58] LABS: BASOPHILS % (AUTO) 0.3 % (0.0-5.0); EOSINOPHILS % (AUTO) 3.1 % (0.0-8.0); HEMATOCRIT 34.8 % (36-48); LYMPHOCYTES % (AUTO) 5.7 % (21.0-51.0); MEAN CORPUSCULAR HEMOGLOBIN 27.2 pg (27.0-33.0); MEAN CORPUSCULAR HGB CONC 30.7 g/dL (32.0-36.0); MEAN CORPUSCULAR VOLUME 88.5 fL (79-99); MONOCYTES % (AUTO) 12.2 % (3.0-13.0); NEUTROPHILS % (AUTO) 78.3 % (40.0-77.0); PLATELET COUNT (AUTO) 115 K/uL (130-400); RED BLOOD CELL COUNT(AUTO) 3.93 MIL/uL (4.00-5.50); RED CELL DISTRIBUTION WIDTH 17.3 % (11.0-15.5); WHITE BLOOD COUNT (AUTO) 9.9 K/uL (4.8-10.8)
[2019-09-17 17:12] LABS: CREATININE 6.9 mg/dL (0.5-1.5); POTASSIUM 4.6 mmol/L (3.5-5.1)
--- NOTE | 2019-09-19 11:35 | NUR ---
RE: ABNORMAL LABS INFORMED DR BETH REGARDING ABNORMAL LABS BMP/CBC. NO NEW ORDERS RECEIVED. PATIENT HAS HEMODIALYSIS MWF.
--- NOTE | 2019-09-19 11:42 | NUR ---
RE: ABNORMAL EKG REPORTED ABNORMAL EKG TO DR WILKINSON. NO NEW ORDERS, MAY PROCEED WITH SURGERY.
--- NOTE | 2019-09-19 18:14 | NUR ---
RE: PLAVIX PATIENT TOOK PLAVIX 75 MG LAST NIGHT, PATIENT WAS NOT INSTRUCTED TO STOP HER PLAVIX. INFORMED DR BETH, NO NEW ORDERS. MAY PROCEED WITH SURGERY.
[~2019-09-20] VITALS: Ht 160 cm; Wt 97.5 kg
[2019-09-20] VITALS (16 sets, daily range): BP systolic 72–117; BP diastolic 19–54
[~2019-09-20 05:38] MED LIST changes: +ATOR40TA69 PO; -CETI10TA57 PO; -CILO100T PO; +CLOP75TA32 PO; -DOCU100C33 PO; -FLUT16H NASAL; -HYDR-4068 PO; +ICOS1CAP PO; +INSU100I21 SQ; -INSU100V12 SQ; -ISOS30TA6 PO; +ISOS60TA4 PO; -LINA145C PO; +LORA-192 PO; -LORA1TAB3 PO; +LOSA50TA64 PO; -MELO-108 PO; -NITR0.4T50 SL; +OMEP20CA12 PO; -OMEP40CA13 PO; +ONDA4TAB10 PO; -ONDA4TAB7 PO; -POLY30DR OU
[2019-09-20] MEDS: CEFAZOLIN SODIUM 1 GM VIAL IVP SCH ×2 (06:00→08:43)
[2019-09-20] MEDS ORDERED: SODIUM CHLORIDE 0.9% 1000ML 1,000 ML IV ONE (07:48)
[2019-09-20] MEDS ORDERED: FENTANYL CITRATE PF 50 MCG/1 ML 2ML VIAL ONE (08:07)
[2019-09-20] MEDS ORDERED: KETAMINE 50MG/ML SYRINGE 50 MG/ML DISP.SYRIN IV ONE (08:20)
[2019-09-20] MEDS ORDERED: PROPOFOL 10 MG/ML 20ML VIAL IV ONE (08:24)
[2019-09-20] MEDS ORDERED: CEFAZOLIN SODIUM 1 GM VIAL ONE (08:30)
[2019-09-20] MEDS ORDERED: DEXTROSE 50%-WATER 25 GM/50 ML VIAL ONE (08:38)
[2019-09-20] MEDS ORDERED: CEPH500B PO (09:38)
== END 2019-09-20 10:20 | disposition home or self-care (01) ==
LOC: DAH 05:38
PROVIDERS: ATTEND Orthopaedic Surgery
DX: S52.512A Displaced fracture of left radial styloid process, initial encounter for closed fracture (principal); G89.29 Other chronic pain; M54.9 Dorsalgia, unspecified; I25.10 Atherosclerotic heart disease of native coronary artery without angina pectoris; I13.2 Hypertensive heart and chronic kidney disease with heart failure and with stage 5 chronic kidney disease, or end stage renal disease; E11.22 Type 2 diabetes mellitus with diabetic chronic kidney disease; N18.6 End stage renal disease; Z90.49 Acquired absence of other specified parts of digestive tract; E78.5 Hyperlipidemia, unspecified; I25.2 Old myocardial infarction; I50.22 Chronic systolic (congestive) heart failure; Z95.1 Presence of aortocoronary bypass graft; Z98.890 Other specified postprocedural states; W19.XXXA Unspecified fall, initial encounter; Y93.89 Activity, other specified; Y92.098 Other place in other non-institutional residence as the place of occurrence of the external cause; Y99.8 Other external cause status; Z11.59 Encounter for screening for other viral diseases
CPT/HCPCS: 25606; 36415 ×2; 64415; 64417; 73110; 76942; 80048; 82948 ×2; 84132; 85025; 93005; A4213; A4215; A4221; A4222; A4223; A4565; A4649; A4663; A4930; A6223; C1713; J0690; J2704; J3010; J3490; J7030 ×2; J7070; Q4051; U0003